=== PATIENT | male | born 1995 | race Caucasian/White ===

== ENCOUNTER 2017-11-17 11:23 | Emergency (ER) | payer OTHER ==
[~2017-11-17] VITALS: Ht 162.6 cm; Wt 59.0 kg
--- NOTE | 2017-11-17 11:25 | PHYS DOC ---
Adult General Chief Complaint Chief Complaint: testicular swelling HPI HPI Patient is a 22 year old male who presents with swollen testes. He states it started about 3 days ago and yesterday just laid around the house. He states it hurts whenever he tries to move. He hasn't taken anything for pain. He states he had troubles with bowel movements a couple days ago and took some laxative to try to help resolve this. He denies any dysuria. He states he felt maybe the verge yesterday but is unsure. He denies any nausea or vomiting. He denies any history of sexually transmitted infections. He states it's his right testicle that hurts. Review of Systems Review of Systems Constitutional: Denies fever or chills [] Eyes: Denies change in visual acuity, redness, or eye pain [] HENT: Denies nasal congestion or sore throat [] Respiratory: Denies cough or shortness of breath [] Cardiovascular: No additional information not addressed in HPI [] GI: Denies abdominal pain, nausea, vomiting, bloody stools or diarrhea [] : Denies dysuria or hematuria, positive for pain and swelling and testes Musculoskeletal: Denies back pain or joint pain [] Integument: Denies rash or skin lesions [] Neurologic: Denies headache, focal weakness or sensory changes [] Endocrine: Denies polyuria or polydipsia [] All other systems were reviewed and found to be within normal limits, except as documented in this note. Physical Exam Physical Exam Constitutional: Well developed, well nourished, no acute distress, non-toxic appearance. [] HENT: Normocephalic, atraumatic, bilateral external ears normal, oropharynx moist, no oral exudates, nose normal. [] Eyes: PERRLA, EOMI, conjunctiva normal, no discharge. [] Neck: Normal range of motion, no tenderness, supple, no stridor. [] Cardiovascular:Heart rate regular rhythm, no murmur [] Lungs & Thorax: Bilateral breath sounds clear to auscultation [] Abdomen/genital: Bowel sounds normal, soft, no tenderness, no masses, no pulsatile masses. Scrotum and right testicle swollen, tender palpation across entire scrotum, no rash or erythema appreciated Skin: Warm, dry, no erythema, no rash. [] Back: No tenderness, no CVA tenderness. [] Extremities: No tenderness, no cyanosis, no clubbing, ROM intact, no edema. [] Neurologic: Alert and oriented X 3, normal motor function, normal sensory function, no focal deficits noted. [] Psychologic: Affect normal, judgement normal, mood normal. [] EKG EKG [] Radiology/Procedures Radiology/[place] [address] IMAGING REPORT Signed PATIENT: RANDY DAMON ACCOUNT: [id number] : 1995 LOCATION: ER AGE: 22 SEX: M EXAM STATUS: REG ER ORD. PHYSICIAN: BINU CHAVARRIA MD REASON: pain, swelling PROCEDURE: TESTICULAR/SCROTUM Scrotal ultrasound History: Right scrotal pain and swelling for a few days. Comparison: None. Technique: Grayscale, color Doppler, and spectral Doppler imaging was performed of the scrotum and contents. Findings: Right testicle measures 4.1 x 3.2 x 2.5 cm. The testicular parenchyma appears mildly heterogeneous. No mass is identified. Right epididymis demonstrates a small heterogeneous soft tissue appearing hypoechoic mass measuring 1.3 x 0.7 x 0.9 cm. Moderate-large hydrocele with numerous septations is seen involving the right hemiscrotum. There is evidence of mild wall thickening of the right hemiscrotum. Doppler imaging demonstrates absence of vascularity to the right testicle. There is no vascularity to the right epididymal mass. The left testicle measures 4.7 x 2.8 x 1.8 cm. Left testicle has homogeneous echogenicity. Left epididymis has unremarkable appearance. No left hydrocele is seen. Left varicocele is seen. Doppler imaging demonstrates the presence of vascularity to the left testicle. Impression: 1. Right testicular torsion as no Doppler vascularity is detected within the right testicle. Parenchymal echogenicity of the right testicle is mildly heterogeneous. 2. Moderate-large complex right hydrocele with numerous septations. 3. Right epididymis also demonstrates presence of hypoechoic mass measuring 1.3 cm. Generally, extratesticular masses are benign, and this mass might be adenomatoid tumor. 4. Left varicocele. 5. No evidence of left testicular mass or torsion. 6. Results called to ER staff, Dr. Chavarria, at 1240 hours. Electronically signed by: Clarence Martínez MD (11/17/2017 12:41 PM) [place] [id number] DICTATED AND SIGNED BY: CLARENCE MARTÍNEZ MD DATE: 11/17/17 1229 CC: BINU CHAVARRIA MD; CHRIS GUTIERREZ MD ~ Impressions: Testicular torsion Course & Med Decision Making Course & Med Decision Making Pertinent Labs and Imaging studies reviewed. (See chart for details) histologic technician inform me of the testicular torsion at 1220. I immediately called urology at [facility] regarding transfer. Urology inform me that there are physicians are in surgery until 3:00 and is approximately 1230 currently. I' ve offered to send the patient to [facility] but the patient and mom state they understand the risks of delaying care and possibly losing his testicle and wants to be sent to [facility] and not another facility. I also spoke with radiology who confirmed testicular torsion of the right testicle. Spoke with Dr. Briones accepts the patient for transfer.I have arranged for emergent transfer to [facility]. Patient's in stable condition at this time being transferred to [facility]. Dragon Disclaimer Dragon Disclaimer This electronic medical record was generated, in whole or in part, using a voice recognition dictation system. Departure Departure: Impression: Primary Impression: Testicular torsion Disposition: 05 XFER OTHER Condition: STABLE Referrals: CHRIS GUTIERREZ MD (PCP) BINU CHAVARRIA MD Nov 17, 2017 11:25
[2017-11-17 12:12] LABS: BILIRUBIN,URINE NEG (NEG); CLARITY,URINE CLEAR; COLOR,URINE YELLOW; GLUCOSE,URINE NEG (NEG); NITRITE,URINE NEG (NEG); UROBILINOGEN,URINE 0.2 mg/dL (0.2 mg/dL)
[2017-11-17 12:13] LABS: BACTERIA,URINE FEW /HPF (0-FEW); RBC,URINE OCC /HPF (0-2); SQUAMOUS EPITHELIAL CELL,UR FEW /LPF; WBC,URINE OCC /HPF (0-4)
[2017-11-17] MEDS ORDERED: MORPHINE SULFATE 4 MG/ML DISP.SYRIN. IV/SQ PRN (12:30)
--- NOTE | 2017-11-17 12:44 | RAD ---
Scrotal ultrasound History: Right scrotal pain and swelling for a few days. Comparison: None. Technique: Grayscale, color Doppler, and spectral Doppler imaging was performed of the scrotum and contents. Findings: Right testicle measures 4.1 x 3.2 x 2.5 cm. The testicular parenchyma appears mildly heterogeneous. No mass is identified. Right epididymis demonstrates a small heterogeneous soft tissue appearing hypoechoic mass measuring 1.3 x 0.7 x 0.9 cm. Moderate-large hydrocele with numerous septations is seen involving the right hemiscrotum. There is evidence of mild wall thickening of the right hemiscrotum. Doppler imaging demonstrates absence of vascularity to the right testicle. There is no vascularity to the right epididymal mass. The left testicle measures 4.7 x 2.8 x 1.8 cm. Left testicle has homogeneous echogenicity. Left epididymis has unremarkable appearance. No left hydrocele is seen. Left varicocele is seen. Doppler imaging demonstrates the presence of vascularity to the left testicle. Impression: 1. Right testicular torsion as no Doppler vascularity is detected within the right testicle. Parenchymal echogenicity of the right testicle is mildly heterogeneous. 2. Moderate-large complex right hydrocele with numerous septations. 3. Right epididymis also demonstrates presence of hypoechoic mass measuring 1.3 cm. Generally, extratesticular masses are benign, and this mass might be adenomatoid tumor. 4. Left varicocele. 5. No evidence of left testicular mass or torsion. 6. Results called to ER staff, Dr. Huffman, at 1240 hours. Electronically signed by: Clarence Anthony MD (11/17/2017 12:41 PM) [place] [id number]
[2017-11-17 12:49] LABS: BASO # 0.1 x10^3/uL (0.0-0.2); BASO % 0 % (0-3); EOS # 0.3 x10^3/uL (0.0-0.7); EOS % 2 % (0-3); HEMATOCRIT 41.6 % (39.0-53.0); HEMOGLOBIN 14.2 g/dL (13.0-17.5); LYMPH % 15 % (24-48); MEAN CORPUSCULAR HEMOGLOBIN 32 pg (25-35); MEAN CORPUSCULAR HGB CONC 34 g/dL (31-37); MEAN CORPUSCULAR VOLUME 93 fL (79-100); MONO % 7 % (0-9); NEUT # 9.7 x10^3uL (1.8-7.7); NEUT % 75 % (31-73); PLATELET COUNT 306 x10^3/uL (140-400); RED BLOOD COUNT 4.46 x10^6/uL (4.30-5.70); RED CELL DISTRIBUTION WIDTH 12.2 % (11.5-14.5); WHITE BLOOD COUNT 12.9 x10^3/uL (4.0-11.0)
[2017-11-17 13:01] VITALS: BP 167/58
[2017-11-17 13:09] LABS: ALBUMIN 3.6 g/dL (3.4-5.0); CALCIUM 9.1 mg/dL (8.5-10.1); CREATININE 0.7 mg/dL (0.7-1.3); DIRECT BILIRUBIN 0.1 mg/dL (0.0-0.2); GFR 142.4; POTASSIUM 3.5 mmol/L (3.5-5.1); TOTAL BILIRUBIN 0.3 mg/dL (0.2-1.0)
== END 2017-11-17 13:15 | disposition short-term general hospital (02) ==
LOC: ER 11:23
DX: N44.00 Torsion of testis, unspecified (principal)
CPT/HCPCS: 36415; 76870; 80048; 80076; 81001; 83880; 85025; 87491; 87591; 96374; 99285; J2270